=== PATIENT | female | born 1930 | race Caucasian/White ===

== ENCOUNTER 2018-04-16 20:28 | Emergency (ER) | payer MEDICARE, OTHER ==
[2018-04-16 20:38] VITALS: BP 134/61
--- NOTE | 2018-04-16 21:26 | ED Physician Documentation ---
PD HPI LOWER EXT INJURY - Stated complaint Stated Complaint: ANKLE PX - Chief complaint Chief Complaint: Ext Problem - History obtained from History obtained from: Patient - History of Present Illness PD HPI LOW EXT INJURY LOCATION: Left, Ankle (She might have twisted it 2 days ago but anyway she has been having pain of the ankle and the calf for the last 2 days. It is much worse if she bears weight. There is no chest pain or trouble breathing. She has not fallen.) Review of Systems Constitutional: reports: Reviewed and negative Cardiac: reports: Reviewed and negative Respiratory: reports: Reviewed and negative PD ED PE NORMAL - Vitals Vital signs reviewed: Yes - General General: Alert and oriented X 3, No acute distress - Extremities Extremities: Other (Left leg: There is stiffly prominence of the calf compared to the right with some prominent varicosities and tenderness in the popliteal fossa without warm or tender knee anteriorly. The ankle is swollen especially on the lateral side with tenderness over the ATFL more than the lateral malleolus. No proximal fibular or foot tenderness.) - Neuro Neuro: Alert and oriented X 3, Normal speech Results - Vitals Vitals: Vital Signs - 24 hr 04/16/18 20:34 Temperature 36.1 C L Heart Rate 88 Respiratory 18 Rate Blood Pressure 134/61 H O2 Saturation 96 Oxygen O2 Source Room air - Rads (name of study) L ankle 3v Radiology: EMP read contemporaneously (Suggestive of a tiny lateral malleolar avulsion fracture) LLE sono Radiology: EMP read contemporaneously (Superficial thrombi and varicose veins but no DVTs. She also has a Badillo's cyst.) PD MEDICAL DECISION MAKING - Sepsis Event Vital Signs: Vital Signs - 24 hr 04/16/18 20:34 Temperature 36.1 C L Heart Rate 88 Respiratory 18 Rate Blood Pressure 134/61 H O2 Saturation 96 Oxygen O2 Source Room air Departure - Departure Disposition: 01 Home, Self Care Clinical Impression: Superficial phlebitis of left leg Lateral malleolar fracture Qualifiers: Encounter type: initial encounter Fracture type: closed Fracture alignment: nondisplaced Laterality: left Qualified Code(s): S82.65XA - Nondisplaced fracture of lateral malleolus of left fibula, initial encounter for closed fracture Badillo's cyst of knee Qualifiers: Laterality: left Qualified Code(s): M71.22 - Synovial cyst of popliteal space [ Badillo], left knee Condition: Good Record reviewed to determine appropriate education?: Yes Instructions: ED Boot Aircast Walker Comments: Tylenol as needed for pain and continue baby aspirin a day. Follow-up with your doctor on return home for recheck.
--- NOTE | 2018-04-16 22:15 | XRAY Report ---
Procedure Date: 04/16/2018 Accession Number: [id number] / [id number] Procedure: XR - Ankle 3 View LT CPT Code: FULL RESULT: EXAM: LEFT ANKLE RADIOGRAPHY. EXAM DATE: 04/16/2018 09:44 PM. CLINICAL HISTORY: Leg pain. COMPARISON: None. TECHNIQUE: 3 views. FINDINGS: Bones: Possible tiny faint calcific fragment distal to the medial malleolar tip could represent a minimal avulsion fracture. Osseous structure is otherwise intact. Tiny plantar calcaneal traction enthesophyte. Joints: No effusion. No subluxation. Ankle mortise is normally aligned. Soft Tissues: Soft tissue swelling present about the ankle, most prominent over the lateral malleolus. Vascular calcification is noted. IMPRESSION: Possible tiny avulsion fracture from the medial malleolus. Otherwise no acute osseous abnormality demonstrated. [facility]
--- NOTE | 2018-04-16 23:55 | Ultrasound Report ---
Procedure Date: 04/16/2018 Accession Number: [id number] / [id number] Procedure: US - Duplex Ext Veins Left CPT Code: FULL RESULT: EXAM: LEFT LOWER EXTREMITY VENOUS ULTRASOUND EXAM DATE: 04/16/2018 10:16 PM. CLINICAL HISTORY: Left leg pain. COMPARISON: None. TECHNIQUE: Real-time sonographic vascular imaging was performed by the hogshead press operator through the lower extremity utilizing both color-flow and Doppler spectral analysis. Multiple hospital sales representative static images were saved for review. FINDINGS: Common Femoral Vein (CFV): Normal. CFV-GSV Junction: Normal. Profunda Femoral Vein (PFV): Normal. Femoral Vein (FV) Prox: Normal. Femoral Vein (FV) Mid: Normal. Femoral Vein (FV) Dist: Normal. Popliteal Vein: Normal. Posterior Tibial Veins: Normal. Suboptimally seen. Peroneal Veins: Normal. Suboptimally seen. Other: Popliteal fossa cyst measuring 1.8 x 1.8 x 2.6 cm. Another fluid collection is seen anterior to the popliteal vein measuring 3.0 x 1.2 x 3.9 cm. There are some thrombosed superficial varicosities in the posterior calf. IMPRESSION: 1. No deep venous thrombosis identified. 2. Thrombosed superficial varicosities in the posterior calf. 3. Popliteal fossa cyst measuring 1.8 x 1.8 x 2.6 cm. There is a possible second popliteal fossa cyst measuring 3.0 x 1.2 x 3.9 cm. [facility]
== END 2018-04-16 23:40 | disposition home or self-care (01) ==
LOC: ED 20:28
DX: I80.02 Phlebitis and thrombophlebitis of superficial vessels of left lower extremity (principal); S82.65XA Nondisplaced fracture of lateral malleolus of left fibula, initial encounter for closed fracture; X50.9XXA Other and unspecified overexertion or strenuous movements or postures, initial encounter; M71.22 Synovial cyst of popliteal space [Baker], left knee
CPT/HCPCS: 99283